=== PATIENT | male | born 1985 | race Caucasian/White ===

== ENCOUNTER 2019-02-25 10:40 | Day surgery (SDC) | payer MEDICARE, MEDICAID ==
[2019-02-21 14:04] LABS: BASOPHILS % (AUTO) 0.5 % (0-1); EOSINOPHILS # (AUTO) 0.1 X10'3 (0-0.9); EOSINOPHILS % (AUTO) 1.3 % (0-6); LYMPHOCYTES # (AUTO) 1.9 X10'3 (1.1-4.8); LYMPHOCYTES % (AUTO) 26.3 % (21-51); MEAN CORPUSCULAR HEMOGLOBIN 30.6 PG (27.0-31.0); MEAN CORPUSCULAR HGB CONC 34.9 g/dL (33.0-36.5); MEAN CORPUSCULAR VOLUME 87.5 FL (78-98); MEAN PLATELET VOLUME 8.5 FL (7.4-10.4); MONOCYTES # (AUTO) 0.7 X10'3 (0-0.9); MONOCYTES % (AUTO) 9.5 % (2-12); NEUTROPHILS # (AUTO) 4.6 X10'3 (1.8-7.7); NEUTROPHILS % (AUTO) 62.4 % (42-75); PRE OP HEMATOCRIT 48.7 % (42.0-52.0); PRE OP PLATELET COUNT 191 X10'3 (140-440); RED BLOOD COUNT 5.57 X10'6 (4.70-6.10); RED CELL DISTRIBUTION WIDTH 13.3 % (11.5-14.5)
[2019-02-21 14:19] LABS: ALBUMIN 4.2 G/DL (3.4-5.0); ALBUMIN/GLOBULIN RATIO 1.4 (1.1-1.5); ALKALINE PHOSPHATASE 75 IU/L (46-116); BLOOD UREA NITROGEN 14 MG/DL (7-18); BUN/CREATININE RATIO 12.6 (5.4-32.0); CALCIUM 9.8 MG/DL (8.5-10.1); CHLORIDE 109 MMOL/L (99-107); CREATININE 1.11 MG/DL (0.60-1.10); PRE OP ALT 36 U/L (30-65); PRE OP ANION GAP 3 (8-16); PRE OP AST 17 U/L (10-37); PRE OP BILIRUB, TOTAL 0.3 MG/DL (0.0-1.0); PRE OP GLUCOSE 72 MG/DL (70-104); PRE OP POTASSIUM 4.4 MMOL/L (3.4-5.1); PRE OP SODIUM 145 MMOL/L (135-145); TOTAL CARBON DIOXIDE 33.4 MMOL/L (24-32); TOTAL PROTEIN 7.3 G/DL (6.4-8.2); eGFR 76 ML/MIN
[2019-02-25] VITALS (9 sets, daily range): BP systolic 119–160; BP diastolic 70–92
[~2019-02-25] VITALS: Ht 175.3 cm; Wt 95.3 kg
[~2019-02-25 10:40] MED LIST: BENZ2TAB7 PO; CLOZ100T31 PO; Cefazolin 2GM/100ML NS IVPB 100 ML IV ONE; DOCUMENT DATE & TIME OF BETA-BLOCKER PO ONE; DULO-31 PO; PROP40TA72 PO; famotidine 10mg tablet PO ONE; ringers solution, lacted 1,000 ML IV SCH
[2019-02-25] MEDS ORDERED: ringers solution, lacted 1,000 ML IV SCH (10:59)
[2019-02-25] MEDS ORDERED: morphine 4 MG/ML inj SYRINge IV PRN ×2 (11:00)
[2019-02-25] MEDS ORDERED: ondansetron/PF 4mg/2ml inj IV PRN (11:00)
[2019-02-25] MEDS ORDERED: proCHLORperazine 10 MG/2 ml inj IV PRN (11:00)
[2019-02-25] MEDS ORDERED: meperidine/PF 25mg/ml syringe IV PRN ×3 (11:00)
[2019-02-25] MEDS ORDERED: methylene blue (5mg/ml) 50mg/10ml ampul IV ONE (12:58)
[2019-02-25] MEDS ORDERED: BUPIVAcaine/PF 2.5 mg/ml (0.25%) 30ml vial ONE (12:58)
[2019-02-25] MEDS ORDERED: BUPIVACAINE liposomal/PF 13.3 MG/ML vial IM ONE ×2 (12:59→13:22)
[2019-02-25] MEDS ORDERED: sevoflurane 250ml liquid IH ONE (13:01)
[2019-02-25] MEDS ORDERED: fentaNYL/PF 50MCG/1 ML 2ML syringe ONE (13:08)
[2019-02-25] MEDS ORDERED: midazolam 2 mg/2 ml injection ONE (13:09)
[2019-02-25] MEDS ORDERED: propofol inj 20 ML IV ONE (13:11)
--- NOTE | 2019-02-25 13:53 | NUR ---
Received from OR via , accompanied by Anesthesiologist SARAH and report given by Anesthesiolgist. ASLEEP LMA IN, SKIN WARM AND DRY DEPP RESP, NO CO PAIN. DAYANA DI,
--- NOTE | 2019-02-25 14:15 | NUR ---
LMA REMOVED DISORIENTED AND COMBATIVE, MOVING ABOUT BED, RIPPED OUT IV.
--- NOTE | 2019-02-25 14:30 | NUR ---
MORE AWAKE, CALMED DOWN, CO PAIN ANAL AREA. DSG WITH SM SSD.
[2019-02-25] MEDS ORDERED: HYDROcodone/acetaminophen 10/325mg tab PO ONE (14:45)
--- NOTE | 2019-02-25 15:23 | NUR ---
AWAKE VS WNL, PAIN DECREASED AFTER MEDS. TOLERATES LIQUIDS. DAD AT BS. DISCH INSTR GIVEN TO PT AND UNDERSTOOD. AKHTAR MED SCRIPT LEFT BEHIND, FATHER CALLED TO PICK IT UP. NO ACTIVE BLEEDING ANAL AREA. HOME WITH DAD
--- NOTE | 2019-02-25 15:23 | NUR ---
SITZ BATH GIVEN TO PT WITH INSTRUCTION
== END 2019-02-25 15:23 | disposition home or self-care (01) ==
LOC: PAS 10:40
PROVIDERS: ATTEND Surgery
DX: K60.2 Anal fissure, unspecified (principal); K64.8 Other hemorrhoids; K64.4 Residual hemorrhoidal skin tags; L57.0 Actinic keratosis; F17.210 Nicotine dependence, cigarettes, uncomplicated; F32.9 Major depressive disorder, single episode, unspecified; F41.9 Anxiety disorder, unspecified; Z91.09 Other allergy status, other than to drugs and biological substances; E66.9 Obesity, unspecified; Z68.31 Body mass index [BMI] 31.0-31.9, adult; Z79.899 Other long term (current) drug therapy
CPT/HCPCS: 36415; 46200; 80053; 82948; 85025; A6224; A6266; C9290; J0690; J2175; J2250; J2704; J3010; J3490; Q9968; 88304; A4215; A4618; A6449; A7000; J7120